=== PATIENT | female | born 1945 | race Two or more races ===

== ENCOUNTER → 2023-04-20 | Outpatient (CLI) | payer OTHER | END | disposition home or self-care (01) | LOC: LAB 09:53 | PROVIDERS: ATTEND Family Medicine | DX: Z12.11 Encounter for screening for malignant neoplasm of colon (principal); E78.2 Mixed hyperlipidemia; R79.89 Other specified abnormal findings of blood chemistry; R73.01 Impaired fasting glucose; R73.03 Prediabetes; R73.09 Other abnormal glucose | CPT/HCPCS: 82270 ==